=== PATIENT | male | born 1960 | race African-American/Black ===

== ENCOUNTER 2021-01-28 13:07 | Emergency (ER) | payer OTHER, MEDICAID ==
[~2021-01-28] VITALS: Ht 182.9 cm; Wt 82.0 kg
[2021-01-28] MEDS ORDERED: IBUPROFEN 600MG TABLET PO STA (13:46)
[2021-01-28 14:49] LABS: CLARITY URINE CLEAR (CLEAR); COLOR URINE YELLOW (YELLOW); KETONES URINE TRACE (NEGATIVE); LEUKOCYTE ESTERASE URINE NEGATIVE (NEGATIVE); NITRITE URINE NEGATIVE (NEGATIVE); OCCULT BLOOD URINE NEGATIVE (NEGATIVE); PROTEIN URINE NEGATIVE (NEGATIVE); SPECIFIC GRAVITY URINE 1.017 (1.005-1.030); UROBILINOGEN URINE 0.2 E.U./dL (0.2-1.0)
[2021-01-28] MEDS ORDERED: ACETAMINOPHEN 325MG TABLET PO ONE (16:45)
[2021-01-28 20:10] VITALS: BP 145/77
== END 2021-01-28 20:20 | disposition home or self-care (01) ==
LOC: ER 13:31
DX: M79.651 Pain in right thigh (principal); I10 Essential (primary) hypertension; Z86.59 Personal history of other mental and behavioral disorders
CPT/HCPCS: 76870; 81003; 93976; 99284

== ENCOUNTER 2021-05-07 09:31 | Emergency (ER) | payer OTHER, MEDICAID ==
[~2021-05-07] VITALS: Ht 182.9 cm; Wt 77.0 kg
[2021-05-07 10:10] VITALS: BP 117/72
[2021-05-07] MEDS ORDERED: HAL5 MT (11:07)
== END 2021-05-07 11:56 | disposition home or self-care (01) ==
LOC: ER 09:31
DX: M79.661 Pain in right lower leg (principal); I10 Essential (primary) hypertension; F20.9 Schizophrenia, unspecified; Z76.0 Encounter for issue of repeat prescription
CPT/HCPCS: 99283

== ENCOUNTER 2021-12-07 09:31 | Emergency (ER) | payer OTHER, MEDICAID ==
[~2021-12-07] VITALS: Ht 172.7 cm; Wt 76.0 kg
[~2021-12-07 09:31] MED LIST: HALO5TAB2 MT
[2021-12-07 09:37] VITALS: BP 180/90
== END 2021-12-07 12:00 | disposition home or self-care (01) ==
LOC: ER 09:48
DX: R44.3 Hallucinations, unspecified (principal); I10 Essential (primary) hypertension
CPT/HCPCS: 99283